=== PATIENT | male | born 1995 | race Caucasian/White ===

== ENCOUNTER 2022-08-24 09:29 | Emergency (ER) | payer OTHER, SELFPAY ==
--- NOTE | ~2022-08-24 | XR_ITS ---
XR knee LT min 4V 08/24/2022 09:57 INDICATION: Left knee pain PROCEDURE: 4 views left knee COMPARISON: No prior studies for comparison. FINDINGS: Fracture, dislocation or subluxation is not identified. No significant joint effusion. The soft tissues appear within normal limits. No foreign bodies are identified. IMPRESSION: 1: NO ACUTE BONE OR JOINT ABNORMALITY IDENTIFIED. Reviewed, dictated and finalized at location A. [employer]
--- NOTE | 2022-08-24 09:31 | ED.LOWEXIN ---
HPI - Extremity Injury (Lower) General Chief Complaint: Extremity Injury, Lower Stated Complaint: left knee injury Time Seen by Provider: 08/24/22 09:31 Source: patient and RN notes reviewed History of Present Illness HPI Narrative: patient is a 26-year-old male who presents to the Urgent Care with complaints of left knee pain. Patient states it has been ongoing for approximately 4 years and has been worse in the last 3 days. Patient states that typically the pain subsides with ice and ibuprofen but he is a special delivery worker and has gotten much worse recently. Patient denies any new recent fall or injury. No other acute complaints. No acute distress noted. Patient aware of the plan of care. Some parts of this dictation were generated by voice recognition software and may contain typographical and/or grammatical inaccuracies. Related Data Allergies Allergy/AdvReac Type Severity Reaction Status Date / Time No Known Allergies Allergy Unverified 07/07/16 12:49 Review of Systems Review of Systems: CONSTITUTIONAL: Denies fever, chills, or sweats. EYES: Denies visual changes, redness, or discharge. ENT: Denies rhinorrhea, congestion, sore throat, or otalgia. CARDIOVASCULAR: Denies chest pain, palpitations, or edema. RESPIRATORY: Denies cough or dyspnea. GASTROINTESTINAL: Denies abdominal pain, nausea, vomiting, or diarrhea. GENITOURINARY: Denies dysuria or hematuria. SKIN: Denies rash or itching. MUSCULOSKELETAL: reports of left knee discomfort NEUROLOGIC: Denies headache, numbness, or weakness. All other systems reviewed are negative, except as documented in HPI. [facility] Family History Family History (Updated 07/09/16 @ 10:32 by DOCTOR UNKNOWN) Mother Patient's mother is in good health Father Patient's father is in good health Sibling Patient's brother is in good health Social History Social History Smoking status: Heavy tobacco smoker Alcohol intake: current Comments At the time of my signature, I reviewed and agree with the nursing past medical, surgical, social, and family history. There is no relevant family history pertinent to the patient complaint. Exam Narrative: GENERAL: This is a well-nourished, well-developed patient, in no apparent distress. HEAD: normocephalic, atraumatic. EYES: PERRL. Sclera clear/white. Vision is grossly intact. EARS: External ears normal, NOSE: External nose normal with no obvious nasal discharge, nares without redness, no rhinorrhea. THROAT: Mucous membranes moist NECK: Neck supple SKIN: warm, intact with no suspicious lesions or rash, good texture and turgor. NEURO: awake, alert, and oriented to person, place and time. There were no obvious focal neurologic abnormalities. EXTREMITIES: no obvious edema, ecchymosis erythema noted to the left knee. Mild tenderness to the medial aspect of the left knee. Negative anterior drawer test. Positive strong left pedal pulse with capillary refill less than 2 seconds. Range of motion the left lower extremity within normal limits with mild exacerbated pain on weight-bearing. Course Course Level of Care: Express Care Visit Vital Signs Vital signs: Vital Signs Temperature 97.9 F 08/24/22 09:36 Pulse Rate 75 08/24/22 09:36 Respiratory Rate 20 08/24/22 09:36 Blood Pressure 146/57 H 08/24/22 09:36 Pulse Oximetry 98 08/24/22 09:36 Oxygen Delivery Room Air 08/24/22 09:36 Temperature 97.9 F 08/24/22 09:36 Pulse Rate 75 08/24/22 09:36 Respiratory Rate 20 08/24/22 09:36 Blood Pressure 146/57 H 08/24/22 09:36 Pulse Oximetry 98 08/24/22 09:36 Oxygen Delivery Room Air 08/24/22 09:36 Reviewed- Patient is informed that they may have pre-hypertension or hypertension based on a blood pressure reading in the department. I recommend the patient call the primary care provider listed on their discharge instructions or a physician of their choice this week to arrange follow-up for further evaluat
[2022-08-24 09:36] VITALS: BP 146/57; PULSE 75; RESP 20; TEMP 36.6; O2SAT 98
== END 2022-08-24 10:15 | disposition home or self-care (01) ==
PROVIDERS: Emergency Provider Nurse Practitioner Family
DX: M25.562 Pain in left knee (principal); F17.200 Nicotine dependence, unspecified, uncomplicated
CPT/HCPCS: 73564; 99203; G0463